=== PATIENT | male | born 1995 | race American Indian/Alaskan Native ===

== ENCOUNTER 2017-09-13 16:23 | Emergency (ER) | payer MEDICAID ==
[~2017-09-13] VITALS: Ht 177.8 cm; Wt 81.0 kg
[~2017-09-13 16:23] MED LIST: BUSP10TA11 PO; ESCI20TA PO
[2017-09-13 18:03] LABS: CLARITY,URINE CLEAR (Clear); COLOR,URINE YELLOW (Yellow); GLUCOSE, URINE NEGATIVE (Neg); KETONES,URINE NEGATIVE (Neg); LEUKOCYTE ESTERASE ,URINE TRACE (Neg); NITRITES, URINE NEGATIVE (Neg); OCCULT BLOOD,URINE NEGATIVE (Neg); PROTEIN,URINE NEGATIVE (Neg); UROBILINOGEN,URINE 0.2 E.U/dL (0.2-1.0)
[2017-09-13 18:05] LABS: UA COLLECTION TYPE CLN CATCH MIDSTREAM
[2017-09-13 18:09] LABS: BACTERIA,URINE NONE SEEN /HPF (Neg); MUCUS STRANDS NONE SEEN /LPF (Neg); RBC,URINE NONE SEEN /HPF (0-2); SQUAMOUS EPITHELIAL CELL,UR NONE SEEN /LPF (FEW)
[2017-09-13] MEDS ORDERED: SULF1TAB49 PO (18:24)
[2017-09-13] MEDS ORDERED: IBUP-1984 PO (18:24)
[2017-09-13 19:05] VITALS: BP 120/70
[2017-09-13] MEDS ORDERED: HYDROcodone/acetaminophen 5mg/325mg tablet PO ONE (19:05)
== END 2017-09-13 19:21 | disposition home or self-care (01) ==
LOC: ER 16:24
DX: M54.9 Dorsalgia, unspecified (principal); N49.2 Inflammatory disorders of scrotum; Z88.8 Allergy status to other drugs, medicaments and biological substances; Z98.890 Other specified postprocedural states; Z79.899 Other long term (current) drug therapy; Z59.0 Homelessness
CPT/HCPCS: 76870; 81001; 87088; 99285

== ENCOUNTER 2017-09-15 17:38 | Emergency (ER) | payer MEDICAID ==
[~2017-09-15] VITALS: Ht 180.3 cm; Wt 82.0 kg
[~2017-09-15 17:38] MED LIST changes: +IBUP-1984 PO; +SULF1TAB49 PO
[2017-09-15] MEDS ORDERED: ketorolac tromethamine 15mg/ml inj. IM ONE (20:30)
[2017-09-15] MEDS ORDERED: CYCL-1 PO (21:28)
[2017-09-15] MEDS ORDERED: LIDO700A32 TOP (21:28)
[2017-09-15] MEDS ORDERED: IBUP-1986 PO (21:28)
[2017-09-15 21:37] VITALS: BP 108/64
== END 2017-09-15 21:39 | disposition home or self-care (01) ==
LOC: ER 17:38
DX: M54.5 Low back pain (principal); R30.0 Dysuria; F17.200 Nicotine dependence, unspecified, uncomplicated; F12.10 Cannabis abuse, uncomplicated; Z88.8 Allergy status to other drugs, medicaments and biological substances
CPT/HCPCS: 96372; 99283; J1885

== ENCOUNTER 2017-09-30 23:21 | Emergency (ER) | payer MEDICAID ==
[~2017-09-30] VITALS: Ht 180.3 cm; Wt 79.7 kg
[~2017-09-30 23:21] MED LIST changes: +CYCL-1 PO; +IBUP-1986 PO; +LIDO700A32 TOP; -SULF1TAB49 PO
[2017-09-30 23:52] VITALS: BP 115/61
== END 2017-10-01 04:04 | disposition left against medical advice (07) ==
LOC: ER 23:22
DX: M54.5 Low back pain (principal); Z53.21 Procedure and treatment not carried out due to patient leaving prior to being seen by health care provider

== ENCOUNTER 2017-11-05 18:15 | Emergency (ER) | payer MEDICAID ==
[~2017-11-05] VITALS: Ht 180.3 cm; Wt 83.0 kg
[~2017-11-05 18:15] MED LIST changes: -IBUP-1984 PO
[2017-11-05] MEDS ORDERED: HYDROcodone/acetaminophen 10/325mg tab PO ONE (20:45)
[2017-11-05 22:24] VITALS: BP 121/69
[2017-11-06] MEDS ORDERED: IBUP-1984 PO (20:11)
[2017-11-06] MEDS ORDERED: ORPH100T2 PO (20:11)
== END 2017-11-05 22:28 | disposition home or self-care (01) ==
LOC: ER 18:16
DX: S80.811A Abrasion, right lower leg, initial encounter (principal); S50.311A Abrasion of right elbow, initial encounter; F17.200 Nicotine dependence, unspecified, uncomplicated; F12.90 Cannabis use, unspecified, uncomplicated; Z88.8 Allergy status to other drugs, medicaments and biological substances; Z79.899 Other long term (current) drug therapy; Z59.0 Homelessness; V13.4XXA Pedal cycle driver injured in collision with car, pick-up truck or van in traffic accident, initial encounter; Y93.89 Activity, other specified; Y92.410 Unspecified street and highway as the place of occurrence of the external cause; Y99.9 Unspecified external cause status
CPT/HCPCS: 73080; 73590; 99284

== ENCOUNTER 2017-11-06 16:27 | Emergency (ER) | payer MEDICAID ==
[~2017-11-06] VITALS: Ht 180.3 cm; Wt 83.0 kg
[2017-11-06 16:38] VITALS: BP 108/66
[2017-11-06] MEDS ORDERED: HYDROcodone/acetaminophen 10/325mg tab PO ONE (18:15)
[2017-11-06] MEDS ORDERED: ORPH100T2 PO (20:11)
[2017-11-06] MEDS ORDERED: IBUP-1984 PO (20:11)
== END 2017-11-06 20:21 | disposition home or self-care (01) ==
LOC: ER 16:28
DX: M54.2 Cervicalgia (principal); R07.89 Other chest pain; F12.90 Cannabis use, unspecified, uncomplicated; Z59.0 Homelessness; Z88.8 Allergy status to other drugs, medicaments and biological substances; Z79.899 Other long term (current) drug therapy
CPT/HCPCS: 71045; 72040; 72125; 99284; L0172

== ENCOUNTER → 2017-11-25 | Emergency (ER) | payer MEDICAID ==
[~2017-11-25] VITALS: Ht 180.3 cm; Wt 80.5 kg
[~2017-11-25] MED LIST changes: +DOXY100C2 PO; +IBUP-1984 PO; +ORPH100T2 PO
[2017-11-25 16:07] VITALS: BP 106/49
== END | disposition home or self-care (01) ==
LOC: ER 15:39
DX: L03.114 Cellulitis of left upper limb (principal); F12.90 Cannabis use, unspecified, uncomplicated; Z98.890 Other specified postprocedural states; Z59.0 Homelessness; Z88.8 Allergy status to other drugs, medicaments and biological substances; Z79.899 Other long term (current) drug therapy
CPT/HCPCS: 99283

== ENCOUNTER 2017-12-10 18:05 | Emergency (ER) | payer MEDICAID ==
[~2017-12-10] VITALS: Ht 180.3 cm; Wt 77.0 kg
[~2017-12-10 18:05] MED LIST changes: -DOXY100C2 PO; -IBUP-1984 PO
[2017-12-10 18:06] VITALS: BP 124/82
[2017-12-10] MEDS ORDERED: ALBU8.5H8 IH (18:18)
[2017-12-10] MEDS ORDERED: ipratropium/albuterol 3ml nebule NEB ONE (18:30)
== END 2017-12-10 19:17 | disposition home or self-care (01) ==
LOC: ER 18:05
DX: J02.9 Acute pharyngitis, unspecified (principal); F12.90 Cannabis use, unspecified, uncomplicated; Z98.890 Other specified postprocedural states; Z88.8 Allergy status to other drugs, medicaments and biological substances; Z79.899 Other long term (current) drug therapy; Z59.0 Homelessness
CPT/HCPCS: 94640; 94760; 99283

== ENCOUNTER 2018-01-03 18:11 | Emergency (ER) | payer MEDICAID ==
[~2018-01-03] VITALS: Ht 180.3 cm; Wt 80.4 kg
[~2018-01-03 18:11] MED LIST changes: +ALBU8.5H8 IH
[2018-01-03 18:14] VITALS: BP 115/77
[2018-01-03] MEDS ORDERED: CLIN300C85 PO (19:09)
== END 2018-01-03 19:24 | disposition home or self-care (01) ==
LOC: ER 18:12
DX: L02.214 Cutaneous abscess of groin (principal); L03.314 Cellulitis of groin; F41.9 Anxiety disorder, unspecified; F32.9 Major depressive disorder, single episode, unspecified; F17.200 Nicotine dependence, unspecified, uncomplicated; F12.10 Cannabis abuse, uncomplicated; Z59.0 Homelessness; Z88.8 Allergy status to other drugs, medicaments and biological substances
CPT/HCPCS: 99283

== ENCOUNTER 2018-01-22 18:18 | Emergency (ER) | payer MEDICAID ==
[~2018-01-22] VITALS: Ht 175.3 cm; Wt 83.8 kg
[~2018-01-22 18:18] MED LIST changes: +CLIN300C85 PO; +ONDA4TAB9 PO
[2018-01-22 18:23] VITALS: BP 104/52
[2018-01-22] MEDS ORDERED: IBUP-1986 PO (19:18)
[2018-01-22] MEDS ORDERED: mag hydrox/Alum hydrox/simeth 30ml oral suspension PO ONE (19:20)
[2018-01-22] MEDS ORDERED: ibuprofen tablet 400 MG TABLET PO ONE (19:20)
[2018-01-22] MEDS ORDERED: LIDOcaine Viscous 15ml cup PO ONE (19:20)
== END 2018-01-22 19:36 | disposition home or self-care (01) ==
LOC: ER 18:18
DX: J02.9 Acute pharyngitis, unspecified (principal); R11.10 Vomiting, unspecified; F12.90 Cannabis use, unspecified, uncomplicated; Z88.8 Allergy status to other drugs, medicaments and biological substances; Z79.899 Other long term (current) drug therapy
CPT/HCPCS: 99284

== ENCOUNTER 2018-08-01 18:07 | Emergency (ER) | payer MEDICAID ==
[~2018-08-01] VITALS: Ht 177.8 cm; Wt 79.3 kg
[~2018-08-01 18:07] MED LIST changes: +CLIN-96 PO; -CLIN300C85 PO; -ONDA4TAB9 PO
[2018-08-01 18:40] VITALS: BP 105/69
[2018-08-01] MEDS ORDERED: LORazepam 1 MG tablet PO ONE (19:45)
== END 2018-08-01 20:39 | disposition home or self-care (01) ==
LOC: ER 18:08
DX: F41.9 Anxiety disorder, unspecified (principal); F31.9 Bipolar disorder, unspecified; F12.90 Cannabis use, unspecified, uncomplicated; Z59.0 Homelessness; Z88.6 Allergy status to analgesic agent; Z88.8 Allergy status to other drugs, medicaments and biological substances
CPT/HCPCS: 99284

== ENCOUNTER 2018-08-14 18:31 | Emergency (ER) | payer MEDICAID ==
[~2018-08-14] VITALS: Ht 175.3 cm; Wt 79.0 kg
[2018-08-14 20:52] VITALS: BP 112/72
== END 2018-08-14 20:53 | disposition home or self-care (01) ==
LOC: ER 18:31
DX: S06.0X0A Concussion without loss of consciousness, initial encounter (principal); S00.83XA Contusion of other part of head, initial encounter; H53.8 Other visual disturbances; F12.90 Cannabis use, unspecified, uncomplicated; Z56.0 Unemployment, unspecified; Z98.890 Other specified postprocedural states; W01.190A Fall on same level from slipping, tripping and stumbling with subsequent striking against furniture, initial encounter; Y93.89 Activity, other specified; Y92.89 Other specified places as the place of occurrence of the external cause; Y99.8 Other external cause status
CPT/HCPCS: 99284

== ENCOUNTER 2018-09-17 22:10 | Emergency (ER) | payer MEDICAID ==
[~2018-09-17] VITALS: Ht 175.3 cm; Wt 79.5 kg
[2018-09-17 22:21] VITALS: BP 108/73
[2018-09-17] MEDS ORDERED: LIDOcaine 5% patch TP ONE (23:25)
[2018-09-17] MEDS ORDERED: acetaminophen 325mg tablet PO ONE (23:25)
[2018-09-17] MEDS ORDERED: ACET-2615 PO (23:26)
[2018-09-17] MEDS ORDERED: LIDO700A32 TP (23:26)
== END 2018-09-17 23:35 | disposition home or self-care (01) ==
LOC: ER 22:11
DX: M54.5 Low back pain (principal); F12.90 Cannabis use, unspecified, uncomplicated; Z59.0 Homelessness; Z98.890 Other specified postprocedural states; Z88.8 Allergy status to other drugs, medicaments and biological substances; Z79.899 Other long term (current) drug therapy
CPT/HCPCS: 99283